=== PATIENT | female | born 1945 | race Caucasian/White ===

== ENCOUNTER 2022-07-26 14:24 | Emergency (ER) | payer MEDICARE, SELFPAY ==
--- NOTE | 2022-07-26 14:36 | ECG_ITS ---
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 Measurements Intervals [place] Rate: 66 P: 75 MA: 190 QRS: 34 QRSD: 100 T: 38 QT: 415 QTc: 437 Interpretive Statements SINUS RHYTHM No previous ECG available for comparison Electronically Signed On 07-27-2022 23:32:45 CDT by Cuco Betancourt M.D. [id number]
[2022-07-26 14:40] VITALS: BP 124/63; PULSE 64; RESP 16; TEMP 36.8; O2SAT 97; BMI 23.6
--- NOTE | 2022-07-26 14:46 | XRR_ITS ---
PROCEDURE INFORMATION: Exam: XR Chest Exam date and time: 07/26/2022 3:06 PM Age: 77 years old Clinical indication: Other: Syncope TECHNIQUE: Imaging protocol: Radiologic exam of the chest. Views: 1 view. COMPARISON: No relevant prior studies available. FINDINGS: Lungs: Unremarkable. No consolidation. Pleural spaces: Unremarkable. No pleural effusion. No pneumothorax. Heart/Mediastinum: There is a left pericardial fat pad. Bones/joints: Unremarkable. Organs: Clips are present in the right upper quadrant consistent with prior cholecystectomy. XR/XR chest 1V portable [id number] IMPRESSION: No evidence for acute cardiopulmonary disease.
[2022-07-26] MEDS: sodium chloride 0.9% 1,000 ML 999 ML IV (14:49)
[2022-07-26 14:53] LABS: Basophils # 0.1 10^3/uL (0.0-0.1); Basophils % 0.8 %; Eosinophils # 0.2 10^3/uL (0.0-0.8); Eosinophils % 2.5 %; Hematocrit 40.1 % (37.0-47.0); Hemoglobin 12.4 g/dL (11.5-15.3); Lymphocytes # 1.1 10^3/uL (0.8-4.8); Lymphocytes % 17.9 %; Mean Corpuscular HGB Conc 30.9 g/dL (30.0-36.0); Mean Corpuscular Hemoglobin 29.9 pg (28.0-34.0); Mean Corpuscular Volume 96.6 fl (81-99); Mean Platelet Volume 8.8 fL (7.4-10.4); Monocytes # 0.7 10^3/uL (0.2-0.9); Monocytes % 11.3 %; Neutrophils # 4.05 10^3/uL (1.8-7.7); Nucleated Red Blood Cells % 0 %; Platelet Count 234 10^3/cmm (130-400); Red Blood Count 4.15 10^6/uL (4.1-5.3); Red Cell Distribution Width 12.8 % (12.1-15.1)
--- NOTE | 2022-07-26 15:07 | W.ED.SYNCOPE ---
HPI - Syncope General: Chief Complaint: Syncope Stated Complaint: SYNCOPE Time Seen by Provider: 07/26/22 14:27 Source: patient and EMS Mode of arrival: EMS Limitations: no limitations History of Present Illness: 77-year-old female states that roughly an hour ago she sat in the car got really diaphoretic felt lightheaded and then had a syncopal event states she had passed out for roughly 30 seconds states she felt fatigued for a while after but states she feels much improved currently she denies any headache denies any chest pain she did not vomit denies any fevers. Associated symptoms: Reports nausea; Deny abdominal pain, chest pain, fever(s) or headache(s) Review of Systems Const: Denies: fever(s), chills, body aches or change in appetite Eyes: Denies: blurry vision or eye discomfort ENMT: Denies: throat pain or dental pain Card: Reports: syncope; Denies: chest pain Resp: Denies: dyspnea GI: Reports: nausea; Denies: abdominal pain, vomiting or diarrhea Musc: Denies: neck pain or back pain Skin/Breast: Denies: rash Neuro: Denies: headache(s) [facility] PFSH: Medical History (Updated 07/26/22 @ 17:41 by Venus Mora MD) No pertinent past medical history Social History (Updated 07/26/22 @ 15:08 by Venus Mora MD) Substance/Drug Use: never Physical Exam Const: COMMON NORMALS: no acute distress, patient oriented x3 and healthy appearing HENMT: COMMON NORMALS: normocephalic and atraumatic HEAD & SCALP: normocephalic and atraumatic Eye: COMMON NORMALS: conjunctivae normal CONJUNCTIVA: Yes conjunctivae normal Neck/C-Spine: COMMON NORMALS: full ROM and supple Chest: COMMONS NORMALS: normal inspection of the chest and normal palpation of entire chest wall Resp: COMMON NORMALS: normal respiratory effort, No retractions, No use of accessory muscles and clear to auscultation bilaterally AUSCULTATION: clear to auscultation bilaterally Cardio: COMMON NORMALS: regular rate, regular rhythm and No murmurs present (Cardio) RATE: regular rate RHYTHM: regular rhythm GI: COMMON NORMALS: Normal to inspection, nondistended, normoactive bowel sounds present, Soft to palpation, non-tender and no masses PALPATION: Yes Soft to palpation Extremity: COMMON NORMALS: normal to inspection and full ROM Neuro: COMMON NORMALS: patient oriented x3, moves all extremities and no focal motor deficits Psych: COMMON NORMALS: mental status grossly normal, Normal thought process present and cooperative THOUGHT PROCESS: Normal thought process present Skin: COMMON NORMALS: no rashes or lesions noted and no wounds GENERAL SKIN EXAM: no rashes or lesions noted Course Vital Signs: Vital signs: Vital Signs Temperature 98.2 F 07/26/22 14:40 Pulse Rate 72 07/26/22 17:45 Respiratory Rate 16 07/26/22 17:45 Blood Pressure 128/66 07/26/22 17:45 Pulse Oximetry 97 07/26/22 17:45 Oxygen Delivery Me thod Room Air 07/26/22 17:45 MDM - Syncope Medical Decision Making Patient presents here with a syncopal event she has been well-appearing here feeling improved history is consistent with likely vasovagal. Troponins blood work is all normal she is stable for discharge she is to follow-up with PCP and return if worsening she understands agrees plan. Differential Diagnosis Likely vasovagal syncope; Unlikely subarachnoid hemorrhage or pulmonary embolism Medical Records I reviewed the patient's medical records. Lab Data I reviewed the patient's lab results. 07/26/22 14:48 07/26/22 14:48 Radiology Impressions Chest X-Ray 07/26/22 14:46 IMPRESSION: No evidence for acute cardiopulmonary disease. Laboratory Results WBC 6.0 10^3/uL (4.0-10.0) 07/26/22 14:48 RBC 4.15 10^6/uL (4.1-5.3) 07/26/22 14:48 Hgb 12.4 g/dL (11.5-15.3) 07/26/22 14:48 Hct 40.1 % (37.0-47.0) 07/26/22 14:48 MCV 96.6 fl (81-99) 07/26/22 14:48 MCH 29.9 pg (28.0-34.0) 07/26/22 14:48 MCHC 30.9 g/dL (30.0-36.0) 07/26/22 14:48 RDW 12.8 % (12.1-15.1) 07/26/22 14:48 Plt Count 234 10^3/cmm (130-400) 07/26/22 14:48 MPV 8.8 fL (7.4-10.4) 07/26/22 14:48 Neut % (Auto) 67.0 % 07/26/22 14:48 Lymph % (Auto) 17.9 % 07/26/22 14:48 [place] % (Auto) 11.3 % 07/26/22 14:48 Eos % (Auto) 2.5 % 07/26/22 14:48 Baso % (Auto) 0.8 % 07/26/22 14:48 Neut # (Auto) 4.05 10^3/uL (1.8-7.7) 07/26/22 14:48 Lymph # (Auto) 1.1 10^3/uL (0.8-4.8) 07/26/22 14:48 [place] # (Auto) 0.7 10^3/uL (0.2-0.9) 07/26/22 14:48 Eos # (Auto) 0.2 10^3/uL (0.0-0.8) 07/26/22 14:48 Baso # (Auto) 0.1 10^3/uL (0.0-0.1) 07/26/22 14:48 Nucleated RBC % (auto) 0 % 07/26/22 14:48 Nucleated RBCs # 0.0 /100WBC 07/26/22 14:48 Sodium 136 mmol/L (136-145) 07/26/22 14:48 Potassium 4.1 mmol/L (3.5-5.1) 07/26/22 14:48 Chloride 105 mmol/L (98-107) 07/26/22 14:48 Carbon Dioxide 20 mmol/L (22-29) L 07/26/22 14:48 Anion Gap 15.1 (5-19) 07/26/22 14:48 BUN 23 mg/dL (8-23) 07/26/22 14:48 Creatinine 0.7 mg/dL (0.5-0.9) 07/26/22 14:48 GFR Calculation Not Reportable 07/26/22 14:48 Glucose 93 mg/dL (65-115) 07/26/22 14:48 Calculated Osmolality 285 mOsm/kg (285-295) 07/26/22 14:48 Calcium 8.8 mg/dL (8.5-10.5) 07/26/22 14:48 Total Bilirubin 0.3 mg/dL (0.15-1.2) 07/26/22 14:48 AST 19 U/L (0-32) 07/26/22 14:48 ALT 18 U/L (0-33) 07/26/22 14:48 Alkaline Phosphatase 64 U/L (35-105) 07/26/22 14:48 Troponin T Baseline 34 ng/L (0-10) H 07/26/22 14:48 Troponin T 120 Minute 28.47 ng/L (0-10) H 07/26/22 16:48 Delta Troponin T -5.53 ABS# (0-10) L 07/26/22 16:48 Total Protein 6.2 g/dL (6.6-8.7) L 07/26/22 14:48 Albumin 4.0 g/dL (3.5-5.2) 07/26/22 14:48 Globulin 2.2 g/dL (1.3-4.6) 07/26/22 14:48 EKG Data EKG 1: I personally reviewed and interpreted this EKG as follows: EKG interpretation date: 07/26/22 EKG interpretation time: 14:36 Interpretation: nsr hr [address] or t wave abnormalities qrs 100 qtc 429 Discharge Plan Discharge Patient Disposition: Home Clinical Impression: Syncope Discharge Orders: Discharge ED (Routine); Ordered 07/26/22 Ordered By: Venus Mora Discharge Diet: Advance as tolerated Discharge Activity: Resume usual activity Patient Instructions: Syncope (ED) Coding Level of Care Code ED Data Integrity Specialist for Lelo Tidwell
[2022-07-26 15:12] LABS: Troponin(5th) Baseline 34 ng/L (0-10)
[2022-07-26 15:14] LABS: Alanine Aminotransferase 18 U/L (0-33); Alkaline Phosphatase 64 U/L (35-105); Blood Urea Nitrogen 23 mg/dL (8-23); Calcium 8.8 mg/dL (8.5-10.5); Carbon Dioxide 20 mmol/L (22-29); Chloride 105 mmol/L (98-107); Globulin 2.2 g/dL (1.3-4.6); Glucose 93 mg/dL (65-115); Osmolality Calculated 285 mOsm/kg (285-295); Sodium 136 mmol/L (136-145); Total Bilirubin 0.3 mg/dL (0.15-1.2); Total Protein 6.2 g/dL (6.6-8.7)
[2022-07-26 15:17] LABS: Anion Gap 15.1 (5-19); Aspartate Amino Transferase 19 U/L (0-32); Potassium 4.1 mmol/L (3.5-5.1)
--- NOTE | 2022-07-26 16:46 | ECG_ITS ---
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 Measurements Intervals [place] Rate: 69 P: 76 OR: 196 QRS: 39 QRSD: 96 T: 38 QT: 399 QTc: 428 Interpretive Statements SINUS RHYTHM Compared to ECG 07/26/2022 14:36:34 No significant changes Electronically Signed On 07-28-2022 8:34:46 CDT by Cuco Betancourt M.D. [id number]
[2022-07-26 17:00] VITALS: BP 134/71; PULSE 70; O2SAT 96
--- NOTE | 2022-07-26 17:04 | PC.NURSE ---
WHILE AT BEDSIDE PT IS IN NAD. LAB DRAWN TWO HOUR TROP.
[2022-07-26 17:36] LABS: Troponin 5 2HR 28.47 ng/L (0-10)
[2022-07-26 17:37] LABS: Troponin 5 2HR Delta -5.53 ABS# (0-10)
[2022-07-26 17:45] VITALS: BP 128/66; PULSE 72; RESP 16; O2SAT 97
--- NOTE | 2022-07-31 12:50 | DCPLANNER ---
certified orthotist practice manager was triggered to call patient due to no primary care physician - patient does not live in the area.
== END 2022-07-26 18:05 | disposition home or self-care (01) ==
PROVIDERS: Emergency Provider Emergency Medicine
DX: R55 Syncope and collapse (principal)
CPT/HCPCS: 36415; 71045; 80053; 84484; 85025; 93005; 96360; 99285; J7030